=== PATIENT | male | born 1955 | race Caucasian/White ===

== ENCOUNTER 2017-07-13 07:56 | Day surgery (SDC) | payer OTHER ==
[~2017-07-13] VITALS: Ht 180.3 cm; Wt 75.4 kg
[~2017-07-13 07:56] MED LIST: ASCO500; ATOR20; AUBAGIO7 MG; CEFD300; CEFD300 PO; CEPH500 PO; CHLO25A PO; ERGO400 PO; FINA5 PO; GABA300 PO; LISI20 PO; SILD25T; SULTRIDS; TAMS.4ER PO; VICODIN 5-3001 EACH
[2017-07-13] MEDS ORDERED: Zofran Odt4 MG PO (21:33)
== END 2017-07-13 11:00 | disposition home or self-care (01) ==
LOC: ORSCSDS 07:56
PROVIDERS: Urology
PROC: 0TF68ZZ Fragmentation in Right Ureter, Via Natural or Artificial Opening Endoscopic (ICD-10-PCS; principal; 2017-07-13 09:15)
PROC: 0T768DZ Dilation of Right Ureter with Intraluminal Device, Via Natural or Artificial Opening Endoscopic (ICD-10-PCS; principal; 2017-07-13 09:15)
DX: N20.0 Calculus of kidney (principal); I10 Essential (primary) hypertension; B19.20 Unspecified viral hepatitis C without hepatic coma; G35 Multiple sclerosis; N31.9 Neuromuscular dysfunction of bladder, unspecified; Z87.891 Personal history of nicotine dependence; Z79.899 Other long term (current) drug therapy
CPT/HCPCS: 82360; C1769; C1889; C1894; C2617; J0744; J2250; J2710; J3010; J7120

== ENCOUNTER 2017-07-13 18:26 | Emergency (ER) | payer OTHER ==
[~2017-07-13] VITALS: Ht 175.3 cm; Wt 83.9 kg
[2017-07-13 20:22] LABS: BASOPHILS ABSOLUTE AUTO 0.02 K/mm3 (0.00-0.23); BASOPHILS PERCENT AUTO 0 % (0-2); EOSINOPHILS PERCENT AUTO 0 % (0-6); Hematocrit 44.5 % (37.0-53.0); Hemoglobin 14.9 g/dL (13.5-17.5); IMMATURE GRAN ABSOLUTE AUTO 0.02 K/mm3 (0.00-0.10); IMMATURE GRAN PERCENT AUTO 0 % (0-1); LYMPHOCYTES ABSOLUTE AUTO 0.71 K/mm3 (0.84-5.20); LYMPHOCYTES PERCENT AUTO 6 % (21-46); MONOCYTES PERCENT AUTO 4 % (4-13); Mean Corpuscular HGB 28.9 pg (26.0-34.0); Mean Corpuscular HGB Conc 33.5 g/dL (31.5-36.5); Mean Corpuscular Volume 86 fL (80-100); Mean Platelet Volume 10.4 fL (9.1-12.4); NEUTROPHILS ABSOLUTE AUTO 11.55 K/mm3 (1.96-9.15); NEUTROPHILS PERCENT AUTO 90 % (41-73); Platelet Count 241 K/mm3 (150-400); RDW Coefficient Variation 13.7 % (11.7-14.2); RDW Standard Deviation 43.2 fL (35.1-46.3); Red Blood Cell Count 5.15 M/mm3 (4.30-5.90)
[2017-07-13 20:22] LABS: Source, Urine Clean Catch
[2017-07-13 20:26] LABS: Bilirubin, Urine Neg (Neg); Blood, Urine 5+ (Neg); Glucose Qualitative, Urine Neg (Neg); Ketones, Urine 2+ (Neg); Leukocyte Esterase, Urine Neg (Neg); Nitrite, Urine Neg (Neg); Protein, Urine 4+ (Neg); Specific Gravity, Urine 1.015 (1.003-1.022); Urobilinogen, Urine NORM (Normal)
[2017-07-13 20:34] LABS: Color, Urine Red (P-Yellow)
[2017-07-13 20:35] LABS: Appearance, Urine Cloudy (Clear)
[2017-07-13 20:36] LABS: Bacteria Few /hpf; Red Blood Cells, Urine TNTC /hpf (0-2); Squamous Epithelial Cells Not Seen /hpf (Few); White Blood Cells, Urine 0-2 /hpf (0-5)
[2017-07-13 20:43] LABS: Alanine Aminotransfer (ALT/SGP 51 U/L (12-78); Albumin, Blood 3.7 g/dL (3.4-5.0); Alk Phos 101 U/L (50-136); Anion Gap 6 mmol/L (6-16); Aspartate Aminotrans (AST/SGOT 26 U/L (12-37); Bilirubin, Total 1.2 mg/dL (0.1-1.0); Blood Urea Nitrogen 18 mg/dL (8-24); Bun/Creatinine Ratio 21.1 (12.0-20.0); CO2, Blood 25 mmol/L (21-32); Calcium, Blood 9.2 mg/dL (8.5-10.1); Chloride, Blood 110 mmol/L (98-108); Creatinine, Blood 0.85 mg/dL (0.60-1.20); Globulin, Blood 3.6 g/dL (2.2-4.0); Glomerular Filtration Rate >60 (60-); Glucose, Blood 118 mg/dL (70-99); Potassium, Blood 4.1 mmol/L (3.5-5.5); Sodium, Blood 141 mmol/L (136-145); Total Protein, Blood 7.3 g/dL (6.4-8.2)
[2017-07-13] MEDS ORDERED: Zofran Odt4 MG PO (21:33)
== END 2017-07-13 22:02 | disposition home or self-care (01) ==
LOC: ER 18:26
PROVIDERS: Emergency Medicine
DX: K91.89 Other postprocedural complications and disorders of digestive system (principal); R11.2 Nausea with vomiting, unspecified; Z98.890 Other specified postprocedural states; Z87.442 Personal history of urinary calculi; Z91.041 Radiographic dye allergy status; Z88.8 Allergy status to other drugs, medicaments and biological substances; Z79.899 Other long term (current) drug therapy; Z79.2 Long term (current) use of antibiotics
CPT/HCPCS: 36415; 80053; 81001; 85025; 96361; 96374; 96375; 99284; J1885; J2405; J7030

== ENCOUNTER 2022-05-30 21:15 | Inpatient (IN) | payer OTHER ==
[~2022-05-30] VITALS: Ht 172.7 cm; Wt 63.0 kg
[~2022-05-30 21:15] MED LIST changes: -ASCO500; +ASCO500 PO; +Zofran Odt4 MG PO
[2022-05-30 21:51] LABS: BASOPHILS ABSOLUTE AUTO 0.06 K/mm3 (0.00-0.23); BASOPHILS PERCENT AUTO 0 % (0-2); EOSINOPHILS ABSOLUTE AUTO 0.01 K/mm3 (0.00-0.68); EOSINOPHILS PERCENT AUTO 0 % (0-6); Hematocrit 47.9 % (37.0-53.0); Hemoglobin 15.7 g/dL (13.5-17.5); IMMATURE GRAN ABSOLUTE AUTO 0.13 K/mm3 (0.00-0.10); IMMATURE GRAN PERCENT AUTO 1 % (0-1); LYMPHOCYTES ABSOLUTE AUTO 0.92 K/mm3 (0.84-5.20); LYMPHOCYTES PERCENT AUTO 4 % (21-46); MONOCYTES ABSOLUTE AUTO 2.76 K/mm3 (0.16-1.47); MONOCYTES PERCENT AUTO 13 % (4-13); Mean Corpuscular HGB 29.2 pg (26.0-34.0); Mean Corpuscular HGB Conc 32.8 g/dL (31.5-36.5); Mean Corpuscular Volume 89 fL (80-100); Mean Platelet Volume 9.5 fL (9.1-12.4); NEUTROPHILS PERCENT AUTO 82 % (41-73); Platelet Count 392 K/mm3 (150-400); RDW Coefficient Variation 14.6 % (11.7-14.2); RDW Standard Deviation 47.7 fL (35.1-46.3); Red Blood Cell Count 5.37 M/mm3 (4.30-5.90); White Blood Cell Count 21.58 K/mm3 (4.00-11.30)
[2022-05-30 22:00] LABS: Source, Urine Straight Cath
[2022-05-30 22:10] LABS: Albumin, Blood 3.6 g/dL (3.4-5.0); Albumin/Globulin Ratio 0.8 (0.8-1.8); Bun/Creatinine Ratio 16.8 (12.0-20.0); Calcium, Blood 10.4 mg/dL (8.5-10.1); Creatinine, Blood 4.23 mg/dL (0.60-1.20); Globulin, Blood 4.6 g/dL (2.2-4.0); Potassium, Blood 5.5 mmol/L (3.5-5.5); Total Protein, Blood 8.2 g/dL (6.4-8.2)
[2022-05-30 22:15] LABS: Appearance, Urine Cloudy (Clear); Bilirubin, Urine Neg (Neg); Blood, Urine 5+ (Neg); Glucose Qualitative, Urine Neg (Neg); Ketones, Urine 1+ (Neg); Leukocyte Esterase, Urine 3+ (Neg); Nitrite, Urine Neg (Neg); Protein, Urine 3+ (Neg); Urobilinogen, Urine NORM (Normal)
[2022-05-30 23:43] LABS: Color, Urine Yellow (P-Yellow)
[2022-05-30 23:59] LABS: White Blood Cells, Urine 50-100 /hpf (0-5)
[2022-05-31] LABS: Bacteria Many /hpf; Squamous Epithelial Cells Rare /hpf (Few)
--- NOTE | 2022-05-31 02:18 | NUR ---
NEW ADMIT FROM ED. ALERT TO SELF. VSS. PT IRRITABLE AND COMBATIVE WHEN STAFF CHANGING TRANSFERRING HIM TO HOSPITAL BED AND CHANGING HIS BRIEF. PT POOR HISTORIAN AND DOES NOT ANSWER QUESTIONS. PT YELLING AT STAFF AND WANTS TO BE LEFT ALONE. PT QUICKLY FELL ASLEEP. ADMIT PROFILE NOT DONE. PT NPO WITH NS AT 125ML/HR. SAEED CATHETER PLACED IN ED, DRAING CLOUDY, DARK, URINE. BED ALARM ON. WILL CONTINUE WITH POC.
[2022-05-31 04:44] LABS: U Amphetamine Screen DETECTED; U Barbituate Screen Not Detected; U Benzodiazapine Screen Not Detected; U Buprenorphine Screen Not Detected; U Cannabinoids Screen DETECTED; U Cocaine Screen Not Detected; U Methadone Screen Not Detected; U Methamphetamine Screen DETECTED; U Opiates Screen DETECTED; U Oxycodone Screen DETECTED; U Phencyclidine Screen Not Detected; U Propoxyphene Screen Not Detected
--- NOTE | 2022-05-31 07:15 | NUR ---
Lethargic, difficult to arouse. Febrile 100.0 temporal. Respirations even, unlabored while lying flat in bed. IV fluids infusing at 125/hour. Villarreal catheter drained of dark yellow turbid urine, 1700cc, which was at times thick with sediment.
[2022-05-31 08:31] LABS: BASOPHILS ABSOLUTE AUTO 0.06 K/mm3 (0.00-0.23); BASOPHILS PERCENT AUTO 0 % (0-2); EOSINOPHILS ABSOLUTE AUTO 0.11 K/mm3 (0.00-0.68); EOSINOPHILS PERCENT AUTO 1 % (0-6); Hematocrit 38.8 % (37.0-53.0); Hemoglobin 12.4 g/dL (13.5-17.5); IMMATURE GRAN ABSOLUTE AUTO 0.06 K/mm3 (0.00-0.10); IMMATURE GRAN PERCENT AUTO 0 % (0-1); LYMPHOCYTES ABSOLUTE AUTO 1.28 K/mm3 (0.84-5.20); LYMPHOCYTES PERCENT AUTO 9 % (21-46); MONOCYTES ABSOLUTE AUTO 1.82 K/mm3 (0.16-1.47); MONOCYTES PERCENT AUTO 13 % (4-13); Mean Corpuscular Volume 91 fL (80-100); Mean Platelet Volume 9.8 fL (9.1-12.4); NEUTROPHILS ABSOLUTE AUTO 10.99 K/mm3 (1.96-9.15); NEUTROPHILS PERCENT AUTO 77 % (41-73); Platelet Count 312 K/mm3 (150-400); RDW Coefficient Variation 14.6 % (11.7-14.2); RDW Standard Deviation 49.3 fL (35.1-46.3); Red Blood Cell Count 4.27 M/mm3 (4.30-5.90); White Blood Cell Count 14.32 K/mm3 (4.00-11.30)
[2022-05-31 08:48] LABS: Albumin, Blood 2.5 g/dL (3.4-5.0); Albumin/Globulin Ratio 0.7 (0.8-1.8); Bilirubin, Total 0.7 mg/dL (0.1-1.0); Bun/Creatinine Ratio 23.6 (12.0-20.0); Calcium, Blood 9.1 mg/dL (8.5-10.1); Creatinine, Blood 2.67 mg/dL (0.60-1.20); Globulin, Blood 3.8 g/dL (2.2-4.0); Potassium, Blood 4.6 mmol/L (3.5-5.5); Total Protein, Blood 6.3 g/dL (6.4-8.2)
--- NOTE | 2022-05-31 10:34 | NUR ---
Thick sediment noted in proximal gilliam tubing. Pt is swearing, occasionally makes statements like "stop" "give me my keys" and generally is lethargic with incoherent outbursts, both when staff are in room and when they are not. Small amount of urine noted in the collection bag. Will monitor for need to irrigate if neccessary.
--- NOTE | 2022-05-31 11:10 | NUR ---
Pt's girlfriend Addison called asking for update on the pt's condition. She said that she will be up to visit him after lunch today.
--- NOTE | 2022-05-31 14:14 | NUR ---
pt talking angrily in room, cursing. I entered the room and found him awake. He is alert, able to carry on conversation. States he knows he is in hospital, but doesn't know why. Denies pain/discomfort. I explained to him the reason for his hospitalization, and treatment (gilliam, IV fluids, antibiotics). He was calm and agreeable. Asked for ice water, which I gave to him. I also told him that his girlfriend Addison had said that she would be here this afternoon to see him.
--- NOTE | 2022-05-31 15:55 | NUR ---
Noted minimal urine output past few hours. Bladder scan revealed [address] Borden. Pt's gilliam was irrigated gently with sterile NS and about 20 cc thick brownish yellow purulent matter evacuated. Urine is now draining freely via gilliam tubing into the sterile contained collection device at the bedside. Follow up bladder scan immediately after irrigation showed 600cc; gilliam continues to drain. Dr. Borden updated on pt condition. Pt tolerated this very well. Urine draining is yellow, cloudy.
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
[2022-06-01 05:13] LABS: BASOPHILS ABSOLUTE AUTO 0.05 K/mm3 (0.00-0.23); BASOPHILS PERCENT AUTO 1 % (0-2); EOSINOPHILS ABSOLUTE AUTO 0.31 K/mm3 (0.00-0.68); EOSINOPHILS PERCENT AUTO 3 % (0-6); Hematocrit 34.5 % (37.0-53.0); Hemoglobin 11.4 g/dL (13.5-17.5); IMMATURE GRAN ABSOLUTE AUTO 0.04 K/mm3 (0.00-0.10); IMMATURE GRAN PERCENT AUTO 0 % (0-1); LYMPHOCYTES ABSOLUTE AUTO 1.42 K/mm3 (0.84-5.20); LYMPHOCYTES PERCENT AUTO 15 % (21-46); MONOCYTES ABSOLUTE AUTO 1.44 K/mm3 (0.16-1.47); MONOCYTES PERCENT AUTO 15 % (4-13); Mean Corpuscular HGB 29.8 pg (26.0-34.0); Mean Corpuscular Volume 90 fL (80-100); Mean Platelet Volume 9.9 fL (9.1-12.4); NEUTROPHILS ABSOLUTE AUTO 6.31 K/mm3 (1.96-9.15); NEUTROPHILS PERCENT AUTO 66 % (41-73); Platelet Count 266 K/mm3 (150-400); RDW Standard Deviation 46.2 fL (35.1-46.3); Red Blood Cell Count 3.83 M/mm3 (4.30-5.90); White Blood Cell Count 9.57 K/mm3 (4.00-11.30)
--- NOTE | 2022-06-01 05:21 | NUR ---
SHIFT SUMMARY ALERT AND ORIENTED X 2. VSS. MORE COOPERATIVE WITH STAFF. SAEED CATH INTACT, DRAINING CLEAR, YELLOW URINE. SLEPT THROUGHOUT THE NIGHT. NO COMPLAINTS OF PAIN. BED ALARM ON. WILL CONTINUE WITH PLAN OF CARE.
[2022-06-01 05:39] LABS: Albumin, Blood 2.4 g/dL (3.4-5.0); Anion Gap 5 mmol/L (6-16); Blood Urea Nitrogen 49 mg/dL (8-24); Bun/Creatinine Ratio 36.6 (12.0-20.0); CO2, Blood 26 mmol/L (21-32); Calcium, Blood 8.7 mg/dL (8.5-10.1); Chloride, Blood 114 mmol/L (98-108); Creatinine, Blood 1.34 mg/dL (0.60-1.20); Glomerular Filtration Rate 58 (60-); Glucose, Blood 94 mg/dL (70-99); Phosphorus, Blood 2.9 mg/dL (2.5-4.9); Sodium, Blood 145 mmol/L (136-145)
--- NOTE | 2022-06-01 10:12 | NUR ---
RN NOTE MR RIZZO IS AWAKE, ORIENTATED TO SELF, TO MAY 2023, TO [facility], BUT UNABLE TO VERBALISE WHY HE IS HERE IN HOSPITAL. FOLLOWING DIRECTIONS, FORGETFUL BUT HAS BEEN CALM THIS MORNING. HE DENIED PAIN AT REST, DID C/O LOWER ABDOMINAL PAIN ON PALPATION. SAEED CATHETER IN PLACE AND DRAINING. BLE EDEMA 1+, REDNESS TO BLE. ON TELE, SR, NO CALLS FROM MAMMA LOGIST. S/B BEET WORKER, AWAITING FAMILY OR GIRLFRIEND FOR MORE INFORMATION TO PLAN DISCHARGE CARE. BED LOW, CALL LIGHT IN REACH, BED ALARM ON.
--- NOTE | 2022-06-01 10:41 | NUR ---
RN NOTE SEDIMENT IN SAEED AT THIS TIME.PT C/O FEELING NEED TO VOID. SAEED DRAINING. FLUSHED WITH 60CC WATER WITH EASY CLEAR RETURN WITH NO SENSATION OF FLUSH PER PT. PT SETTLED NOW.
--- NOTE | 2022-06-01 11:25 | NUR ---
RN NOTE 2 PERSON ASSIST TO BSC WITH GAIT BELT. PT WAS VERY UNSTEADY ON TRANSFER TO BSC, IMPULSIVE, NOT FOLLOWING DIRECTIONS WELL.
--- NOTE | 2022-06-01 16:38 | NUR ---
SHIFT SUMMARY MR RIZZO HAS BEEN CONFUSED, ABLE TO FOLLOW SIMPLE INSTRUCTIONS. HE HAS BED ALARM ON, HAS TRIED TO GET UP A FEW TIMES TODAY. REMINDED THAT HE HAS SAEED CATHETER IN. IT HAS BEEN DRAINING WELL, FLUSHED ONCE WITH EASY CLEAR RETURN. SEDIMENT NOTICED IN TUBING. [place]. UP TO [facility] THIS AM, DIFFICULT TRANSFER WITH 2 PERSON MAX ASSIST, PHYSICAL THERAPY SEEING HIM NOW. ON TELEMETRY, SR WITH 2 SECOND RUN SVT CALLED FROM [employer]. PT DENIED ANY SYMPTOMS AT THE TIME (I WAS WITH HIM WHEN THEY CALLED) BED LOW, CALL LIGHT IN REACH, BED ALARM ON.
[2022-06-01] MEDS ORDERED: LISINOPRIL-HCT1 EACH PO (20:43)
[2022-06-01] MEDS ORDERED: GLATIRAMER40 MG/1 ML SC (20:46)
[2022-06-01] MEDS ORDERED: NEURONTIN300 MG PO ×2 (20:47)
--- NOTE | 2022-06-02 08:00 | NUR ---
PT YELLING AND CONSTANTLY SITTING UP AND TRYING TO STAND UP AT SHIFT CHANGE. PT REPORTED HAVING A HEADACHE AND UNABLE TO LAY DOWN. DISCUSSED SITTING IN A CHAIR OR RECLINER AND PT AGREEABLE. 2 PERSON ASSIST UP TO CHAIR WITH ALARM IN PLACE. PT REPORTED FEELING MUCH BETTER. ABLE TO GET RECLINER WITHIN THE HOUR AFTER SHIFT CHANGE AND PT ASSISTED TO THAT. A/OX4 WITH ASKED AND ABLE TO DISCUSSED HEALTH HISTORY.
--- NOTE | 2022-06-02 08:05 | NUR ---
SOCIAL SECURITY SPECIALIST SUMMARY PT HAD MULTIPLE EPISODES T/O THE NIGHT WHERE HE WOULD YELL OUT LOUDLY AND PULL AT HIS HEAD SAYING, "NO! GET OUT!" PT TOLD THIS NURSE HE WAS HAVING A HEADACHE ON THE LEFT SIDE OF HIS HEAD; THEN HE REPORTED HE HAD AN EAR ACHE. THE PAIN WOULD SEEM TO COME IN WAVES AND PT WOULD BECOME UNCONSOLABLE. PT CONFUSED; ATTEMPTS TO GET OUT BED--PT IS 2P MAX ASSIST T/BSC. PT NOT ORIENTED TO HIS OWN ABILTY. CONTACTED 2X--NEW ORDER FOR FENTANYL Q4 AND 1X ORDER FOR ZYPREXA 10MG IM. PT RELIEF W/MEDS WERE BRIEF. DECISION MADE T/MOVE PT F/332 TO 348; PT MOVED APROX 0630. SAEED CATH IN PLACE; URINE APPEARS THICK W/SEDIMENT. DRAINING T/GRAVITY. CONT IV FLUIDS INFUSING. PT ON TELE; NORMAL SINUS IN 70-80'S. BED LOCKED AND ALARM SET.
[2022-06-02 09:32] LABS: Magnesium, Blood 1.7 mg/dL (1.6-2.4)
[2022-06-02 09:33] LABS: Albumin, Blood 2.6 g/dL (3.4-5.0); Albumin/Globulin Ratio 0.6 (0.8-1.8); Bilirubin, Total 0.3 mg/dL (0.1-1.0); Bun/Creatinine Ratio 28.3 (12.0-20.0); Calcium, Blood 8.6 mg/dL (8.5-10.1); Creatinine, Blood 0.88 mg/dL (0.60-1.20); Potassium, Blood 3.8 mmol/L (3.5-5.5); Total Protein, Blood 6.6 g/dL (6.4-8.2)
--- NOTE | 2022-06-02 17:18 | NUR ---
SHIFT SUMMARY PT SLEEPING IN RECLINER MOST OF DAY. GIRLFRIEND IN TO STAY WITH HIM FOR SEVERAL HOURS THIS AFTERNOON. DID WORK WITH P.T. HAS BEEN ORIENTED AND COOPERATIVE WHEN AWAKE SINCE THIS MORNING. HAS DENIED PAIN BUT GIRLFRIEND STATES PT YELLS AND MOANS WHEN HE IS HAVING PAIN SIMILAR TO WHAT HE WAS DOING THIS MORNING. STATES HE GENERALLY TAKES A HALF A PERCOCET OR SMOKES MARIJUANA FOR PAIN TO TAKE THE EDGE OFF AND THAT IT DOES COME AND GO. 2 PERSON ASSIST WITH TRANSFERS TO AND FROM RECLINER. CURRENTLY LAYING IN BED.
--- NOTE | 2022-06-03 03:54 | NUR ---
SPAR FINISHER SUMMARY VSS. ON CAMERA FOR SAFETY. LETHARGIC AT HS. IVF OF 0.45 NS INFUSING AT 100 ML/HR. WAS ALERTED APPARENT LEAKAGE OF BLOOD ON SHEET NEAR IV SITE. ON ARRIVAL AT BEDSIDE, APPARENT THAT IV LINE PULLED AWAY. IV SITE FLUSHED WELL. PT MORE AWAKE AND ACCEPTED NOCT MEDS WELL. LINEN CHANGED. PT WITHOUT S/S ACUTE DISTRESS. HAS BEEN RESTING QUIETLY WITH FEW INTERRUPTIONS SINCE. CALL LIGHT IN REACH. RAILS UP X 3. WILL CONTINUE TO [place]
[2022-06-03 06:00] LABS: BASOPHILS ABSOLUTE AUTO 0.05 K/mm3 (0.00-0.23); BASOPHILS PERCENT AUTO 1 % (0-2); EOSINOPHILS ABSOLUTE AUTO 0.56 K/mm3 (0.00-0.68); EOSINOPHILS PERCENT AUTO 8 % (0-6); Hematocrit 35.8 % (37.0-53.0); Hemoglobin 11.9 g/dL (13.5-17.5); IMMATURE GRAN ABSOLUTE AUTO 0.04 K/mm3 (0.00-0.10); IMMATURE GRAN PERCENT AUTO 1 % (0-1); LYMPHOCYTES ABSOLUTE AUTO 1.62 K/mm3 (0.84-5.20); LYMPHOCYTES PERCENT AUTO 23 % (21-46); MONOCYTES ABSOLUTE AUTO 0.91 K/mm3 (0.16-1.47); MONOCYTES PERCENT AUTO 13 % (4-13); Mean Corpuscular HGB 29.6 pg (26.0-34.0); Mean Corpuscular HGB Conc 33.2 g/dL (31.5-36.5); Mean Corpuscular Volume 89 fL (80-100); Mean Platelet Volume 10.3 fL (9.1-12.4); NEUTROPHILS ABSOLUTE AUTO 3.94 K/mm3 (1.96-9.15); NEUTROPHILS PERCENT AUTO 55 % (41-73); Platelet Count 272 K/mm3 (150-400); RDW Coefficient Variation 13.2 % (11.7-14.2); RDW Standard Deviation 43.7 fL (35.1-46.3); Red Blood Cell Count 4.02 M/mm3 (4.30-5.90); White Blood Cell Count 7.12 K/mm3 (4.00-11.30)
[2022-06-03 06:38] LABS: Magnesium, Blood 1.8 mg/dL (1.6-2.4)
[2022-06-03 06:39] LABS: Bun/Creatinine Ratio 24.5 (12.0-20.0); Calcium, Blood 8.4 mg/dL (8.5-10.1); Creatinine, Blood 0.78 mg/dL (0.60-1.20)
[2022-06-03] MEDS ORDERED: CEFD300 PO (16:31)
--- NOTE | 2022-06-03 17:12 | NUR ---
DISCHARGE PT A&OX4 AND GIRL FRIEND @ BEDSIDE FOR D/C INSTRUCTIONS. IV, TELE, SAEED REMOVED. TOLERATING PO INTAKE WELL. MEDS FAXED TO [facility] PER PT REQUEST. VSS. ESCORTED OUT VIA WC, GIRLFRIEND PROVIDING TRANSPORT AND ASSURES THIS RN THAT THEY HAVE FRIENDS TO HELP GET HIM IN THE HOME DUE TO WEAKNESS.
== END 2022-06-03 16:53 | disposition home health service (06) | DRG 871 ==
LOC: ER 21:15 → MEDS 05-31 02:01
PROVIDERS: Family Medicine; Student in an Organized Health Care Education/Training Program; ADMIT Internal Medicine
DX: A41.9 Sepsis, unspecified organism (principal); G92.8 Other toxic encephalopathy; N17.9 Acute kidney failure, unspecified; E87.0 Hyperosmolality and hypernatremia; N39.0 Urinary tract infection, site not specified; E87.20 Acidosis, unspecified; R65.20 Severe sepsis without septic shock; N13.9 Obstructive and reflux uropathy, unspecified; M79.89 Other specified soft tissue disorders; G35 Multiple sclerosis; F15.10 Other stimulant abuse, uncomplicated; F12.10 Cannabis abuse, uncomplicated; N31.9 Neuromuscular dysfunction of bladder, unspecified; R33.9 Retention of urine, unspecified; B19.20 Unspecified viral hepatitis C without hepatic coma; B96.89 Other specified bacterial agents as the cause of diseases classified elsewhere; Z88.8 Allergy status to other drugs, medicaments and biological substances; Z91.041 Radiographic dye allergy status; Z79.811 Long term (current) use of aromatase inhibitors; Z79.2 Long term (current) use of antibiotics; Z79.899 Other long term (current) drug therapy; Z79.02 Long term (current) use of antithrombotics/antiplatelets; Z87.442 Personal history of urinary calculi; Z98.890 Other specified postprocedural states
CPT/HCPCS: 36415; 51700; 51701; 51702; 71045; 74176; 80048; 80053; 80069; 81001; 83605; 83735; 85025; 87040; 87086; 93005; 93010; 93970; 96361-59; 96374-59; 96375-59; 97110; 97116; 97161; 97530; 99285-25; A9270; J0696; J1644; J2060; J3010; J7030; J7120

== ENCOUNTER 2022-12-13 12:15 | Emergency (ER) | payer OTHER ==
[~2022-12-13] VITALS: Ht 180.3 cm; Wt 72.6 kg
[~2022-12-13 12:15] MED LIST changes: +AMOCLA875 PO; +GLATIRAMER40 MG/1 ML SC; +LISINOPRIL-HCT1 EACH PO; +NEURONTIN300 MG PO
[2022-12-13 14:03] LABS: BASOPHILS ABSOLUTE AUTO 0.08 K/mm3 (0.00-0.23); BASOPHILS PERCENT AUTO 1 % (0-2); EOSINOPHILS ABSOLUTE AUTO 0.14 K/mm3 (0.00-0.68); EOSINOPHILS PERCENT AUTO 1 % (0-6); Hematocrit 42.6 % (37.0-53.0); Hemoglobin 13.5 g/dL (13.5-17.5); IMMATURE GRAN ABSOLUTE AUTO 0.06 K/mm3 (0.00-0.10); IMMATURE GRAN PERCENT AUTO 1 % (0-1); LYMPHOCYTES PERCENT AUTO 11 % (21-46); MONOCYTES ABSOLUTE AUTO 1.12 K/mm3 (0.16-1.47); MONOCYTES PERCENT AUTO 9 % (4-13); Mean Corpuscular HGB 28.7 pg (26.0-34.0); Mean Corpuscular HGB Conc 31.7 g/dL (31.5-36.5); Mean Corpuscular Volume 91 fL (80-100); NEUTROPHILS ABSOLUTE AUTO 9.71 K/mm3 (1.96-9.15); NEUTROPHILS PERCENT AUTO 78 % (41-73); Platelet Count 390 K/mm3 (150-400); RDW Coefficient Variation 15.3 % (11.7-14.2); RDW Standard Deviation 50.9 fL (35.1-46.3); White Blood Cell Count 12.41 K/mm3 (4.00-11.30)
[2022-12-13 14:22] LABS: Alanine Aminotransfer (ALT/SGP 16 U/L (12-78); Albumin/Globulin Ratio 0.8 (0.8-1.8); Alk Phos 125 U/L (50-136); Anion Gap Unable to Calculate mmol/L (6-16); Aspartate Aminotrans (AST/SGOT 17 U/L (12-37); Bilirubin, Total 0.4 mg/dL (0.1-1.0); Blood Urea Nitrogen 28 mg/dL (8-24); Bun/Creatinine Ratio 24.1 (12.0-20.0); CO2, Blood 30 mmol/L (21-32); Calcium, Blood 9.2 mg/dL (8.5-10.1); Chloride, Blood 118 mmol/L (98-108); Creatinine, Blood 1.16 mg/dL (0.60-1.20); Globulin, Blood 3.7 g/dL (2.2-4.0); Glomerular Filtration Rate 69 (60-); Glucose, Blood 97 mg/dL (70-99); Potassium, Blood 4.6 mmol/L (3.5-5.5); Sodium, Blood 147 mmol/L (136-145); Total Protein, Blood 6.7 g/dL (6.4-8.2)
[2022-12-13 15:26] LABS: Source, Urine Clean Catch
[2022-12-13 16:08] LABS: Appearance, Urine Hazy (Clear); Bilirubin, Urine Neg (Neg); Blood, Urine 4+ (Neg); Color, Urine Yellow (P-Yellow); Glucose Qualitative, Urine Neg (Neg); Ketones, Urine Neg (Neg); Leukocyte Esterase, Urine 2+ (Neg); Nitrite, Urine Neg (Neg); Protein, Urine 3+ (Neg); Specific Gravity, Urine 1.015 (1.003-1.022); Urobilinogen, Urine NORM (Normal)
[2022-12-13 16:21] LABS: Amorphous Mod (0-Heavy); Bacteria Many /hpf; Mucus Light (0-Heavy); Squamous Epithelial Cells Rare /hpf (Few)
[2022-12-13] MEDS ORDERED: CEFP200 PO (16:41)
[2022-12-13 19:15] VITALS: BP 142/109
== END 2022-12-13 19:25 | disposition home or self-care (01) ==
LOC: ER 12:15
PROVIDERS: Student in an Organized Health Care Education/Training Program
DX: N39.0 Urinary tract infection, site not specified (principal); I47.1 Supraventricular tachycardia; J44.9 Chronic obstructive pulmonary disease, unspecified; G35 Multiple sclerosis; Z88.8 Allergy status to other drugs, medicaments and biological substances; Z91.041 Radiographic dye allergy status; Z79.899 Other long term (current) drug therapy
CPT/HCPCS: 51701; 71046; 80053; 81001; 85025; 93242; 96360; 99284-25; J7030

== ENCOUNTER 2023-05-25 14:18 | Inpatient (IN) | payer OTHER ==
[~2023-05-25] VITALS: Ht 170.2 cm; Wt 69.0 kg
[2023-05-25] VITALS (18 sets, daily range): BP systolic 80–100; BP diastolic 46–62
[~2023-05-25 14:18] MED LIST changes: +CEFP200 PO
[2023-05-25 14:50] LABS: Calcium, Ionized (POC) 1.21 mmol/L (1.10-1.46); Chloride (POC) 115 mmol/L (98-108); Glucose (ISTAT POC) 84 mg/dL (70-99); Hemoglobin (POC) 14.3 g/dL (13.5-17.5); Potassium (POC) 4.7 mmol/L (3.5-5.5); Sodium (POC) 145 mmol/L (135-148); Total CO2 (POC) 21 mmol/L (21-32)
[2023-05-25 14:59] LABS: Bicarbonate Venous 18.1 mmol/L (24.0-30.0); PCO2 Venous 45.7 mmHg (38-42); pH Blood Venous 7.24 (7.34-7.37)
[2023-05-25 15:07] LABS: Hematocrit 41.9 % (37.0-53.0); Hemoglobin 13.3 g/dL (13.5-17.5); Mean Corpuscular HGB 27.8 pg (26.0-34.0); Mean Corpuscular HGB Conc 31.7 g/dL (31.5-36.5); Mean Corpuscular Volume 88 fL (80-100); NRBC ABSOLUTE 0.05 K/mm3 (0.00-0.02); NRBC Auto 0.3 /100 WBC (0.0-0.2); RDW Coefficient Variation 19.3 % (11.7-14.2); RDW Standard Deviation 61.4 fL (35.1-46.3); Red Blood Cell Count 4.79 M/mm3 (4.30-5.90); White Blood Cell Count 15.34 K/mm3 (4.00-11.30)
[2023-05-25 15:28] LABS: Source, Urine Foley catheter
[2023-05-25 15:32] LABS: Appearance, Urine Cloudy (Clear); Bilirubin, Urine Neg (Neg); Blood, Urine 5+ (Neg); Color, Urine Amber (P-Yellow); Glucose Qualitative, Urine Neg (Neg); Ketones, Urine 1+ (Neg); Leukocyte Esterase, Urine 3+ (Neg); Nitrite, Urine Neg (Neg); Protein, Urine 3+ (Neg); Specific Gravity, Urine 1.015 (1.003-1.022); Urobilinogen, Urine NORM (Normal)
[2023-05-25 15:34] LABS: Platelet Count 48 K/mm3 (150-400)
[2023-05-25 15:45] LABS: International Normalized Ratio 1.22; Prothrombin Time Results 12.7 Sec (9.7-11.5)
[2023-05-25 15:46] LABS: U Amphetamine Screen Not Detected; U Barbituate Screen Not Detected; U Benzodiazapine Screen Not Detected; U Buprenorphine Screen Not Detected; U Cannabinoids Screen DETECTED; U Cocaine Screen Not Detected; U Methadone Screen Not Detected; U Methamphetamine Screen Not Detected; U Opiates Screen Not Detected; U Oxycodone Screen Not Detected; U Phencyclidine Screen Not Detected
[2023-05-25 15:49] LABS: BAND PERCENT MAN 47 % (0-8); BASOPHILS PERCENT MAN 0 % (0-2); EOSINOPHILS PERCENT MAN 0 % (0-6); METAMYELOCYTE ABSOLUTE MAN 0.15 K/mm3 (0.00-0.00); METAMYELOCYTE PERCENT MAN 1 % (0-0); MONOCYTES ABSOLUTE MAN 0.92 K/mm3 (0.16-1.47); MONOCYTES PERCENT MAN 6 % (4-13); NEUTROPHILS ABSOLUTE MAN 14.26 K/mm3 (1.96-9.15); SEG NEUTROPHILS PERCENT MAN 46 % (41-73); TOTAL CELLS COUNTED 100
[2023-05-25 16:06] LABS: Red Blood Cells, Urine 50-100 /hpf (0-2); White Blood Cells, Urine 25-50 /hpf (0-5)
[2023-05-25 16:07] LABS: Bacteria Many /hpf; Squamous Epithelial Cells Few /hpf (Few)
[2023-05-25 16:08] LABS: Amorphous Light (0-Heavy); Triple Phosphate Crystals Mod /hpf
[2023-05-25 16:16] LABS: Albumin, Blood 2.1 g/dL (3.4-5.0); Albumin/Globulin Ratio 0.7 (0.8-1.8); Bilirubin, Total 0.5 mg/dL (0.1-1.0); Bun/Creatinine Ratio 47.3 (12.0-20.0); Calcium, Blood 8.4 mg/dL (8.5-10.1); Creatinine, Blood 1.1 mg/dL (0.60-1.20); Globulin, Blood 2.9 g/dL (2.2-4.0); Potassium, Blood 4.8 mmol/L (3.5-5.5)
--- NOTE | 2023-05-25 19:15 | NUR ---
ASSUMPTION OF CARE: RECEIVED REPORT FROM SAUNDRA RN AND RADHA RN. PT ARRIVED FROM ER VIA GURNEY DURING SHIFT CHANGE. TOTAL ASSIST TO SLIDE PT TO ICU BED. PT SOMNOLENT BUT AROUSES TO VERBAL STIMULI. UNABLE TO ANSWER QUESTIONS OR FOLLOW COMMANDS. WITHDRAWS TO PAINFUL STIMULI. PT ON LEVOPHED AT 11 MCG/MIN TITRATED TO MAINTAIN MAP >65. HR 60'S-70'S. PT ON RA WITH SPO2 >95%. SAEED IN PLACE, PATENT AND DRAINING TO GRAVITY. SMALL BM NOTED. WOUNDS NOTED ALL OVER BODY, PICTURES IN CHART. TEMP 89.7 ON ARRIVAL TO ICU, WARMING BLANKET IN PLACE TO MAINTAIN TEMP <98.6. CENTRAL LINE TO RIGHT IJ, INFUSING. PUPILS SMALL, SLUGGISH BILATERALLY.
--- NOTE | 2023-05-25 22:23 | NUR ---
UPDATE: CALL PLACED TO DR. LUCERO REGARDING UNEVEN PUPILS. LEFT PUPIL LARGER THAN RIGHT AND VERY SLUGGISH. PT SISTER ALSO CALLED FOR UPDATE ON PT CONDITION AND REGARDING CODE STATUS. INFORMED DR. LUCERO OF SISTERS CONCERNS AND HE STATED HE WOULD CALL HER.
[2023-05-25 23:50] LABS: Base Excess Venous -5.6 mmol/L; Bicarbonate Venous 20.1 mmol/L (24.0-30.0); PCO2 Venous 37.3 mmHg (38-42); pH Blood Venous 7.34 (7.34-7.37)
[2023-05-26] VITALS (63 sets, daily range): BP systolic 76–122; BP diastolic 43–76
--- NOTE | 2023-05-26 00:56 | NUR ---
UPDATE: CALLED DR. STEPHEN REGARDING BLOOD SUGAR OF 68, ORDER TO INFUSE 1500 ML TOTAL OF D5-1/2NS.
[2023-05-26 04:55] LABS: Albumin, Blood 1.7 g/dL (3.4-5.0); Albumin/Globulin Ratio 0.6 (0.8-1.8); Bilirubin, Total 0.5 mg/dL (0.1-1.0); Bun/Creatinine Ratio 35.9 (12.0-20.0); Calcium, Blood 7.5 mg/dL (8.5-10.1); Creatinine, Blood 1.42 mg/dL (0.60-1.20); Phosphorus, Blood 3.8 mg/dL (2.5-4.9); Potassium, Blood 4.7 mmol/L (3.5-5.5); Total Protein, Blood 4.7 g/dL (6.4-8.2)
--- NOTE | 2023-05-26 06:01 | NUR ---
SHIFT SUMMARY: PT REMAINS SOMNOLENT T/O THE NIGHT. MINIMAL RESPONSE TO VERBAL STIMULI. WITHDRAWS TO PAIN. LEVOPHED REMAINS AT 13 MCG/MIN AND VASOPRESSIN AT 0.04 UNITS/MIN TO MAINTAIN MAP >65. D5-1/2 AT 125 ML/HR. SR WITH HR 80'S. TEMP REMAINS STABLE AT 97.5 WITH WARM BLANKETS. PUPILS PINPOINT AND SLUGGISH BILATERALLY. RECTAL TUBE IN PLACE WITH BROWN LIQUID. SAEED REMAINS PATENT AND DRAINING TO GRAVITY JHONATAN/YELLOW URINE. REMAINS ON RA T/O THE SHIFT WITH SPO2 >95%. RIJ PATENT AND INFUSING. PIV TO LFA AND R HAND REMAIN PATENT AND SALINE LOCKED. NO GAG NOTED WITH ORAL CARE, COUGH AND SWALLOW PRESENT.
[2023-05-26 06:07] LABS: Hemoglobin 12.1 g/dL (13.5-17.5); Mean Corpuscular HGB 27.5 pg (26.0-34.0); Mean Corpuscular HGB Conc 31.8 g/dL (31.5-36.5); Mean Corpuscular Volume 86 fL (80-100); NRBC ABSOLUTE 0.25 K/mm3 (0.00-0.02); NRBC Auto 1.7 /100 WBC (0.0-0.2); Platelet Count 75 K/mm3 (150-400); RDW Coefficient Variation 19.8 % (11.7-14.2); RDW Standard Deviation 61.3 fL (35.1-46.3); White Blood Cell Count 15.01 K/mm3 (4.00-11.30)
[2023-05-26 06:37] LABS: BAND PERCENT MAN 38 % (0-8); BASOPHILS PERCENT MAN 0 % (0-2); EOSINOPHILS PERCENT MAN 0 % (0-6); LYMPHOCYTES ABSOLUTE MAN 0.15 K/mm3 (0.84-5.20); LYMPHOCYTES PERCENT MAN 1 % (21-46); METAMYELOCYTE ABSOLUTE MAN 0.15 K/mm3 (0.00-0.00); METAMYELOCYTE PERCENT MAN 1 % (0-0); MONOCYTES PERCENT MAN 6 % (4-13); MYELOCYTE ABSOLUTE MAN 0.15 K/mm3 (0.00-0.00); MYELOCYTE PERCENT MAN 1 % (0-0); NEUTROPHILS ABSOLUTE MAN 13.65 K/mm3 (1.96-9.15); SEG NEUTROPHILS PERCENT MAN 53 % (41-73); TOTAL CELLS COUNTED 100
--- NOTE | 2023-05-26 10:53 | NUR ---
"Spiritual Care Attempted | Pt. Request Pt. is solidly somnolent and not responsive. Though unresponsive, prayer was made for the Pt. Will remain available to the Pt."
--- NOTE | 2023-05-26 15:37 | NUR ---
"Spiritual Care | Pre-Comfort care Pt. is somnolent and non-responsive. Pts. sister and daughter are present. Facilitated a life review of th ePt. and family. Daughter requested that there be clergy present to pray over Pt., not realizing this cosmetic assembler was clergy. Prayed with Pt. at bedside with Pts. sister and daughter present. Family verbalize that there are more family coming. This cosmetic assembler suggested that we also gather them at bedside when they arrive. Will remain available to the Pt. and family."
--- NOTE | 2023-05-26 18:33 | NUR ---
Shift summary. Pt remained in bed throughout shift. Unresponsive to any stimuli during am assessment. After family dicussion, decision made to make pt comfort care. All medications DC'd at 1545 this afternoon. Family at bedside. Pt turned Q2, bedbath complete. Appears to be resting comfortably. Comfort care meds given PRN, see EMAR. Will report off to nightshift RN.
--- NOTE | 2023-05-26 19:15 | NUR ---
ASSUMPTION OF CARE: RECEIVED REPORT FROM MEKHI NELSON. PT SOMNOLENT. DOES NOT ARROUSE TO VERBAL OR PAINFUL STIMULI. PT MOVING AROUND IN BED AND GRIMACING, MEDICATED PER MAR FOR PAIN. PT NOW APPEARS TO BE RESTING COMFORTABLY. FAMILY AT THE BEDSIDE. OFFERED TO REPOSITION PT FOR COMFORT AND THEY STATED HE LOOKED COMFORTABLE. PT ON RA WITH SATS >95%. LUNG SOUNDS CLEAR/DIM. SR WITH HR 60'S. RECTAL TUBE IN PLACE DRAINING BROWN LIQUID. SAEED IN PLACE FOR COMFORT, PATENT AND DRAINING TO GRVAITY. CENTRAL LINE TO RIGHT IJ, SALINE LOCKED. PIV INTACT AND SALINE LOCKED. PT AWAITING TRANSFER TO MEDICAL FLOOR.
--- NOTE | 2023-05-26 23:54 | NUR ---
TRANSFER: REPORT GIVEN TO MICHELLE NELSON. PT TANSFERRED TO MEDICAL FLOOR ROOM 360 AT 2345. PT SLID ACROSS TO MEDICAL FLOOR BED WITH MAX ASSIST. ALL BELONGINGS SENT WITH THE PT. SISTER AT BEDSIDE.
[2023-05-27] MEDS ORDERED: LISINOPRIL-HCT1 EACH PO (02:35)
--- NOTE | 2023-05-27 04:41 | NUR ---
PT ARRIVED TO THE UNIT AT 2345. CARE STAFF TRANSFERED PT TO HOSPITAL BED VIA THE BLACK TRANSFER SHEET. PT ADMITTED FOR HYPOTHERMIA. PT ON COMFORT CARE, Q2 TURNS COMPLETED TO KEEP PT COMFORTABLE. PT HAS SAEED CATH THAT WAS PLACED ON 05/25/23 NEEDED FOR END OF LIFE COMFORT CARE. PT'S SISTER IS ROOMING-IN WITH PT OVERNIGHT. PT MEDICATED FOR PAIN BEFORE REPOSITIONING. PT HAS BRUISES ALL OVER BODY, MULTIPLE SCABS/SCRATCHES, RASHES/RED EXCORIATED AREA ALL OVER BACK AND BUTTOCKS AND WOUND TO L LOWER EXTREMITY. PT HAS A HX OF MS, NEUROGENIC BLADDER, HEP C, METHAMPHETAMINE USE, AND COPD. COMFORT CARE CART WAS ORDERED FOR PT AND FAMILY. CALL LIGHT WITHIN REACH, WCTM.
--- NOTE | 2023-05-27 09:53 | NUR ---
Comfort Care Visit Pt resting in bed with his eyes closed. Family and Primary RN Helen at bedside. Pt appears comfortable with no S/S of distress at this time. Offered brief supportive visit to family. Palliative Care will remain available
--- NOTE | 2023-05-27 16:16 | NUR ---
SHIFT SUMMARY: PT HAS RESTED QUIETLY DURING THE SHIFT. OCCASIONAL CHANGE IN BREATHING NOTED, IMPROVEMENT NOTED WITH ROXANOL. PT DID ATTEMPT TO WITHDRAW HIS LEG ONCE DURING THE DRESSING CHANGE TO THE LLE. PT HAS BEEN TURNED AND REPOSITIONED Q2, ORAL CARE PROVIDED, CATH CARE PROVIDED THIS SHIFT. PT DID BITE DOWN ON ORAL CARE SWAB ONCE. SAEED PATENT, DARK URINE PRESENT IN SAEED. RECTAL TUBE IN PLACE, WATERY STOOL PRESENT IN RECTAL TUBE. PT IS LYING IN BED WITH EVEN, UNLABORED RESPIRATIONS, CALL LIGHT IN REACH. EDUCATED FAMILY ON APPROPRIATE PAIN MANAGEMENT AND NON-VERBAL PAIN BEHAVIOR. WCTM UNTIL REPORT IS GIVEN TO CREW SCHEDULER RN.
--- NOTE | 2023-05-28 02:40 | NUR ---
END OF SHIFT SUMMARY PT SOMNOLENT, RESTING PEACEFULLY IN BED THROUGHOUT THE SHIFT OVERNIGHT. SISTER MAGGY AT BEDSIDE ROOMING-IN WITH PT. PT MEDICATED WITH PO ROXANOL x2, IV ATIVAN x2, AND ATROPINE x1. PT RECEIVED MEDICATION BEFORE Q2 TURNS TO ENSURE COMFORT DURING REPOSITIONING, OCCASSIONAL GRIMACING NOTED WITH MOVEMENT. BREATHING IMPROVED AFTER ROXANOL. RESP RATE 18, BREATHES EVEN AND UNLABORED. SAEED CATH PRODUCING SMALL AMOUNT OF URINE. RECTAL TUBE IN PLACE WITH BROWN LIQUID STOOL PRESENT. FREQUENT ROUNDING COMPLETED. SUPPORT GIVEN TO FAMILY MEMBERS. BED IN LOWEST POSITION, FAMILY ENCOURAGED TO CALL FOR ASSISTANCE NEEDED, WCTM.
--- NOTE | 2023-05-28 08:47 | NUR ---
Comfort Care Visit Pt resting in bed with his eyes closed. No family at bedside at this time. Pt appears comfortable with no S/S of distress at this time. Palliative Care will remain available
--- NOTE | 2023-05-28 18:54 | NUR ---
SHIFT SUMMARY: MEKHI IS NOT RESPONSIVE TO VERBAL OR PAINFUL STIMULI. HE DID CLOSE HIS MOUTH ONE TIME TODAY DURING ORAL CARE. PT HAS BEEN TURNED AND REPOSITIONED, BED BATH AND COMPLETE LINEN CHANGE DONE TODAY. PT HAS DEMONSTRATED INCREASED WOB THIS SHIFT WITH IMPROVEMENT AFTER ADMINISTRATION OF ROXANOL. FAMILY AT BEDSIDE. SAEED AND RECTAL TUBE IN PLACE. HE IS LYING IN BED WITH THE CALL LIGHT IN REACH. PT NOT ALERT ENOUGH TO USE CALL LIGHT. REPORT WAS GIVEN TO MANAGER FIBER RN.
--- NOTE | 2023-05-29 06:29 | NUR ---
SHIFT SUMMARY: PT IS ADMITTED FOR HYPOTHERMIA AND IS A DNR. IS ON COMFORT CARE AND IS UNRESPONSIVE TO STIMULI. 1-2P FOR BED MOVEMENTS. HAVE NOT NOTED ANY PAIN OR DISCOMFORT THIS SHIFT. HAVE GIVEN PRN ROXANOL FOR APNIC EPISODES OF 3-5 SEC WITH SOME MILD CHAIN HERNANDEZ BREATHING EVERY ONCE IN A WHILE. ACC CHEST MUSCLES HAVE BEEN USED IN VARYING DEGREE AT TIMES WITH SOME BELLY BREATHING NEAR END OF SHIFT. FAMILY HAS BEEN AT BEDSIDE THROUGH MOST OF SHIFT.
[2023-05-29 11:04] VITALS: BP 79/49
--- NOTE | 2023-05-29 15:58 | NUR ---
Spiritual care visit conducted. Upon receiving a request from OMAR Good, I visited and the family. Patient is minimally responsive. Patient's sister Anna and her spouse Dustin are bedside and talk at length about the patient's life and their struggles to help guide and support him and also their attempts to not enable him. They share about his quique background and theirs and their concerns about how far away from quique he has ended up in life. I provide prayer for the patient and for the family as well as providing anticipatory grief support and theological insights. Family voice their appreciation for the visit and show signs of being comforted. I will continue to remain available to patient and family.
--- NOTE | 2023-05-29 17:12 | NUR ---
SHIFT SUMMARY PT UNRESPONSIVE AND ON COMFORT CARE, PRIOR TO START OF SHIFT. PT MEDICATED PER EMAR, MOSTLY FOR AIR HUNGER, AND PER FAMILY REQUEST. REPOSITIONED FOR COMFORT, PER FAMILY REQUEST WELL. DR VEE HERE THIS AM TO CK ON PT AND FAMILY. NO FURTHER NEEDS TO PRESENT. MULTIPLE FAMILY IN AND OUT. FAMILY ABLE TO MAKE NEEDS KNOWN.
== END 2023-05-29 23:38 | DRG 871 ==
LOC: ER 14:18 → ICUE 17:42 → MEDS 05-26 23:45
PROVIDERS: Emergency Medicine; Internal Medicine; ADMIT Student in an Organized Health Care Education/Training Program
PROC: 02HV33Z Insertion of Infusion Device into Superior Vena Cava, Percutaneous Approach (ICD-10-PCS; principal; 2023-05-25)
PROC: 0T9B70Z Drainage of Bladder with Drainage Device, Via Natural or Artificial Opening (ICD-10-PCS; 2023-05-25)
PROC: 3E03329 Introduction of Other Anti-infective into Peripheral Vein, Percutaneous Approach (ICD-10-PCS; 2023-05-25)
PROC: B548ZZA Ultrasonography of Superior Vena Cava, Guidance (ICD-10-PCS; 2023-05-25)
PROC: 3E033XZ Introduction of Vasopressor into Peripheral Vein, Percutaneous Approach (ICD-10-PCS; 2023-05-25)
DX: A41.02 Sepsis due to Methicillin resistant Staphylococcus aureus (principal); G92.8 Other toxic encephalopathy; R65.21 Severe sepsis with septic shock; N39.0 Urinary tract infection, site not specified; E87.20 Acidosis, unspecified; E72.4 Disorders of ornithine metabolism; M62.82 Rhabdomyolysis; Z66 Do not resuscitate; Z51.5 Encounter for palliative care; D64.9 Anemia, unspecified; J44.9 Chronic obstructive pulmonary disease, unspecified; F12.90 Cannabis use, unspecified, uncomplicated; I67.9 Cerebrovascular disease, unspecified; N31.2 Flaccid neuropathic bladder, not elsewhere classified; E86.0 Dehydration; F15.11 Other stimulant abuse, in remission; D69.6 Thrombocytopenia, unspecified; G35 Multiple sclerosis; Z87.01 Personal history of pneumonia (recurrent); Z86.19 Personal history of other infectious and parasitic diseases; Z87.891 Personal history of nicotine dependence; Z88.8 Allergy status to other drugs, medicaments and biological substances; Z91.041 Radiographic dye allergy status; Z79.2 Long term (current) use of antibiotics; Z79.899 Other long term (current) drug therapy
CPT/HCPCS: 36415; 36556; 51702; 70450; 71045; 80047; 80053; 81001; 82140; 82550; 82803; 82947; 83605; 84100; 84484; 85014; 85025; 85610; 85730; 87040; 87077; 87086; 87147; 87186; 93005; 93010; 96365-59; 96366-59; 96367-59; 96368; 96375-59; 99291-25; A9270; J0696; J2060; J2270; J2543; J3370; J7030; J7042; J7050; J7060; J7120